=== PATIENT | female | born 1965 | race Caucasian/White ===

== ENCOUNTER 2022-09-29 07:58 | Emergency (ER) | payer BC ==
[~2022-09-29] VITALS: Ht 177.8 cm; Wt 97.0 kg
[2022-09-29 08:09] VITALS: BP 120/74
[2022-09-29] MEDS ORDERED: OFLOXACIN0.3 % OS (08:14)
[2022-09-29] MEDS ORDERED: TOBREX OPTH5 ML/BTL OS (08:14)
== END 2022-09-29 08:59 | disposition home or self-care (01) | DRG 125 ==
LOC: ED 07:58
DX: H10.32 Unspecified acute conjunctivitis, left eye (principal)